=== PATIENT | male | born 1945 | race Caucasian/White ===

== ENCOUNTER 2016-12-16 10:39 | Emergency (ER) | payer OTHER ==
[~2016-12-16] VITALS: Wt 90.0 kg
[~2016-12-16 10:39] MED LIST: AMLO5TAB4 PO; ASPI-664 PO; ATOR40TA68 PO; BENA40TA41 PO; DOCU-159 PO; METO-429 PO; MULTI PO; OMEG100011 PO; TRAM-40 PO
[2016-12-16] MEDS ORDERED: morphine 4 MG/ML VIAL IV STA (11:45)
[2016-12-16] MEDS ORDERED: SOD CHLORIDE 0.9% 1,000 ML IV STA (11:45)
[2016-12-16] MEDS ORDERED: ONDANSETRON 4 MG INJ IV STA (11:45)
[2016-12-16 12:26] LABS: BASOPHILS % 0.4 % (0.0-2.0); EOSINOPHILS # 0.3 10^3/ul (0.0-0.5); EOSINOPHILS % 3.1 % (0.0-7.0); HEMATOCRIT 47.9 % (42.0-52.0); HEMOGLOBIN 16.4 g/dl (14.0-18.0); LYMPHOCYTES # 2.2 10^3/ul (0.8-2.9); LYMPHOCYTES % 22.9 % (15.0-51.0); MEAN CORPUSCULAR HEMOGLOBIN 29.8 pg (29.0-33.0); MEAN CORPUSCULAR HGB CONC 34.3 g/dl (32.0-37.0); MEAN CORPUSCULAR VOLUME 86.8 fl (82.0-101.0); MEAN PLATELET VOLUME 8.4 fl (7.4-10.4); MONOCYTE # 0.7 10^3/ul (0.3-0.9); MONOCYTES % 7.5 % (0.0-11.0); NEUTROPHIL # 6.5 10^3/ul (1.6-7.5); NEUTROPHILS % 66.1 % (39.0-77.0); PLATELET COUNT 190 10^3/UL (140-440); RED BLOOD COUNT 5.52 10^6/ul (4.70-6.10); UNCORRECTED WBC 9.8 10^3/ul (4.8-10.8); WHITE BLOOD COUNT 9.8 10^3/ul (4.8-10.8)
[2016-12-16 12:28] LABS: ADD UMIC YES; CONDITION 1; URINE BILIRUBIN (Dip) NEGATIVE (NEGATIVE); URINE BLOOD (Dip) NEGATIVE (NEGATIVE); URINE COLOR YELLOW (YELLOW); URINE GLUCOSE (Dip) NEGATIVE (NEGATIVE); URINE KETONES (Dip) NEGATIVE (NEGATIVE); URINE LEUKOCYTE ESTERASE (Dip) NEGATIVE (NEGATIVE); URINE NITRITE (Dip) NEGATIVE (NEGATIVE); URINE TOTAL PROTEIN (Dip) 1+ (NEGATIVE); URINE UROBILINOGEN (Dip) 1.0 E.U./dL (0.1-1.0)
[2016-12-16 12:38] LABS: SQUAMOUS EPITHELIAL CELL,UR OCCASIONAL; URINE RBCS NONE SEEN /HPF (0)
[2016-12-16 12:50] LABS: POTASSIUM 3.7 mmol/L (3.5-5.1)
[2016-12-16 12:51] LABS: CREATININE 0.97 mg/dl (0.61-1.24)
[2016-12-16 12:52] LABS: ALBUMIN/GLOBULIN RATIO 1.21; BILIRUBIN,INDIRECT 1.2 mg/dl (0-1.1); BILIRUBIN,TOTAL 1.2 mg/dl (0.2-1.3); CALCIUM 9.1 mg/dl (8.4-10.2); TOTAL PROTEIN 7.3 g/dl (6.1-8.1)
[2016-12-16 13:01] LABS: INR 0.97; PROTIME 12.9 Sec (12.2-14.2)
[2016-12-16 13:02] LABS: TROPONIN-I 0.013 ng/ml (0.00-0.12)
--- NOTE | 2016-12-16 14:42 | RADRPT ---
PROCEDURE: CT Abdomen and Pelvis without intravenous contrast. CLINICAL INDICATION: Right flank pain. . TECHNIQUE: CT scan of the abdomen and pelvis without intravenous contrast was performed on a multi -slice CT scanner. Coronal and sagittal reformatted images were obtained from the axial source image s. Images were reviewed on a high-resolution PACS workstation. Total DLP = 962.0 mGy-cm. CTDIvol = 15.6 mGy. One or more of the following dose reduction techniques were used: Automated exposure control. Adjustment of the mA and/or kV according to patient size. Use of iterative reconstruction technique. COMPARISON: 11/05/2014 FINDINGS: CT abdomen and pelvis: The lung bases are clear. The heart size is normal in size. The liver is normal in size and mildly fatty in density without focal mass or intrahepatic biliary dilatation. The spleen is normal in si ze and homogeneous in density. The pancreas as visualized is normal. The gallbladder is nondisten ded with a 1 cm stone near the neck.. The adrenal glands are normal. The kidneys are symmetric in size. There are multiple left renal cysts measuring up to 5.3 cm. Small hyperdense 6 mm nodule in the left renal cortex likely represents a hemorrhagic cyst. There is mild bilateral perinephric str anding. There is no obstructive uropathy or urolithiasis identified.. The stomach is partially collapsed, but is grossly unremarkable. The small bowels are unremarkable. The colon and rectum are normal. Colonic diverticulosis is present. There is no evidence of appendi citis or diverticulitis. The pelvic organs are normal. The bladder is normal. There is no abdominal or pelvic adenopathy, free fluid, free air, mass or mesenteric inflammation. The aorta is normal in caliber with calcific atherosclerosis . The osseous structures showing degen erative spondylosis of the spine. No osteolytic or osteoblastic lesions are identified. The soft ti ssues are within normal limits. Lack of IV and oral contrast limits sensitivity of exam. IMPRESSION: 1. Cholelithiasis. 2. Mild hepatic steatosis. 3. Multiple left renal cysts. Small 6 mm hemorrhagic cyst in the left kidney. No evidence of obstr uctive uropathy or urolithiasis. 4. Colonic diverticulosis without evidence of diverticulitis. RPTAT: GG .Alexei Herrera MD, MD Date Time Electronically viewed and signed by .Alexei Herrera MD, on 12/16/2016 14:41 .L/
[2016-12-16] MEDS ORDERED: IBUP400T22 PO (15:11)
[2016-12-16] MEDS ORDERED: MAG355OR14 PO (15:11)
[2016-12-16] MEDS ORDERED: ONDA4TAB8 PO (15:11)
--- NOTE | 2016-12-16 15:14 | ERD ---
ER Documentation Chief Complaint Date/Time DATE: 12/16/16 TIME: 15:12 Chief Complaint ABD PAIN FOR 5 DAYS WITH N/V. INTERMITTENT BLOOD IN STOOL S HPI 71-year-old man complains of diffuse abdominal pain and cramping with some episodes of nausea and clear nonbloody nonbilious emesis. He denies blood per rectum or melena although he does state he has this pain on a very regular basis for the last few years almost once to twice per week and is just here for reevaluation. He denies fevers or chills, no weight loss, no chest pain or shortness of breath. ROS All systems reviewed and are negative except as per history of present illness. Medications Home Meds Active Scripts Ondansetron Hcl* (Zofran*) 4 Mg Tablet, 4 MG PO Q8H Y for NAUSEA AND/OR VOMITING , #15 TAB Prov:CHRIST LAW MD 12/16/16 Mag Hydrox/Al Hydrox/Simeth (Maalox Advanced Suspension) 355 Ml Oral.susp, 2 TSP PO TID for PAIN, #24 OZ Prov:CHRIST LAW MD 12/16/16 Ibuprofen* (Motrin*) 400 Mg Tab, 400 MG PO Q8 for PAIN AND/OR INFLAMMATION, #30 TAB Prov:CHRIST LAW MD 12/16/16 Atorvastatin* (Atorvastatin*) 40 Mg Tablet, 80 MG PO HS for 30 Days, #30 TAB Prov:JOSEF RAMOS MD 06/25/16 Aspirin* (Aspirin* EC) 81 Mg Tablet.dr, 81 MG PO DAILY for 30 Days, #30 Prov:JOSEF RAMOS MD 06/25/16 Reported Medications Amlodipine Besylate* (Norvasc*) 5 Mg Tablet, 5 MG PO DAILY, TAB 11/05/14 Benazepril Hcl* (Benazepril Hcl*) 40 Mg Tablet, 40 MG PO DAILY, TAB 11/05/14 Multivitamins* (Theragran*) 1 Tab Tab, 1 TAB PO DAILY, TAB 11/05/14 Metoprolol Tartrate* (Lopressor*) 50 Mg Tab, 50 MG PO BID, TAB 11/05/14 Tramadol Hcl* (Ultram*) 50 Mg Tablet, 50 MG PO Q8, TAB 11/05/14 Docusate Sodium* (Docusate Sodium*) 100 Mg Capsule, 100 MG PO BID Y for CONSTIPATION, CAP 11/05/14 [place]-3 Fatty Acids/Fish Oil* (Fish Oil *) 1,000 Mg Capsule, 1000 MG PO DAILY, CAP 11/05/14 Allergies Allergies: Coded Allergies: No Known Drug Allergy (Verified Allergy, Mild, 03/25/11) PMhx/Soc Chronic recurrent abdominal pain, hypertension, gastritis, previous TIA and stroke, hyperlipidemia, previous alcohol abuse, coronary artery bypass graft and surgical revision History of Surgery: Yes (CABG) Anesthesia Reaction: No Hx Neurological Disorder: Yes (CVA) Hx Respiratory Disorders: No Hx Cardiac Disorders: Yes (HTN, CAD) Hx Psychiatric Problems: No Hx Miscellaneous Medical Probl: Yes (high cholesterol, CAD, ETOH abuse) Hx Alcohol Use: No Hx Substance Use: No Hx Tobacco Use: No Smoking Status: Never smoker FmHx Family History: No diabetes Physical Exam Vitals Vital Signs Date Time Temp Pulse Resp B/P Pulse Ox O2 Delivery O2 Flow Rate FiO2 12/16/16 15:33 59 18 171/82 99 Room Air 12/16/16 12:14 62 18 192/98 99 Room Air 12/16/16 10:47 98.8 72 21 200/105 98 Physical Exam GENERAL: Well-developed, well-nourished, well-hydrated, in no apparent distress , looks nontoxic in appearance HEENT: Moist mucous membranes, pink conjunctiva, no cervical spine tenderness or step-off deformities, no goiter, no jaundice or icterus, extraocular movements intact without pain. No submandibular induration, and no pharyngeal erythema NEURO: Alert and oriented 3, cranial nerves II through XII intact bilaterally, pupils equal round reactive to light, no focal deficits or facial asymmetry, sensation intact distally Strength 5/5 in upper and lower extremities bilaterally CARDIAC: Regular rate and rhythm, no murmurs rubs or gallops LUNGS: Clear bilaterally no wheezing crackles or stridor ABDOMEN: Soft nontender, no guarding, no rigidity, no rebound, no psoas sign no obturator sign. Normoactive bowel sounds SKIN: Warm and dry to touch, no abrasions, contusions, or hematomas, no lacerations, no ecchymosis, no target lesions, and without ulcers EXTREMITIES: No clubbing cyanosis or edema, calves are bilaterally symmetrical, no Homans sign, no popliteal cord sign. Distal pulses equal and bilateral PSYCH: Normal affect without agitation or irritability Result Diagram: 12/16/16 1200 12/16/16 1200 Results 24 hrs Laboratory Tests Test 12/16/16 12:00 Alanine Aminotransferase (ALT/SGPT) 55IU/L Albumin 4.0g/dl Albumin/Globulin Ratio 1.21 Alkaline Phosphatase 105IU/L Anion Gap 18 Aspartate Amino Transf (AST/SGOT) 58IU/L Basophils # 0.010^3/ul Basophils % 0.4% Blood Urea Nitrogen 10mg/dl Calcium Level 9.1mg/dl Carbon Dioxide Level 28mmol/L Chloride Level 102mmol/L Creatinine 0.97mg/dl Direct Bilirubin 0.00mg/dl Eosinophils # 0.310^3/ul Eosinophils % 3.1% Globulin 3.30g/dl Glucose Level 110mg/dl Hematocrit 47.9% Hemoglobin 16.4g/dl INR International Normalized Ratio 0.97 Indirect Bilirubin 1.2mg/dl Lipase 114U/L Lymphocytes # 2.210^3/ul Lymphocytes % 22.9% Mean Corpuscular Hemoglobin 29.8pg Mean Corpuscular Hemoglobin Concent 34.3g/dl Mean Corpuscular Volume 86.8fl Mean Platelet Volume 8.4fl Monocytes # 0.710^3/ul Monocytes % 7.5% Neutrophils # 6.510^3/ul Neutrophils % 66.1% Nucleated Red Blood Cells # 0.010^3/ul Nucleated Red Blood Cells % 0.0/100WBC Platelet Count 46219^3/UL Potassium Level 3.7mmol/L Prothrombin Time 12.9Sec Prothrombin Time Ratio 1.0 Red Blood Count 5.5210^6/ul Red Cell Distribution Width 14.0% Sodium Level 144mmol/L Total Bilirubin 1.2mg/dl Total Protein 7.3g/dl Troponin I 0.013ng/ml Urine Bilirubin NEGATIVE Urine Clarity CLEAR Urine Color YELLOW Urine Glucose NEGATIVE% Urine Hemoglobin NEGATIVE Urine Ketones NEGATIVE Urine Leukocyte Esterase NEGATIVE Urine Microscopic RBC NONE SEEN/HPF Urine Microscopic WBC 0-2/HPF Urine Nitrite NEGATIVE Urine Specific [place] 1.020 Urine Squamous Epithelial Cells OCCASIONAL Urine Total Protein 1+ Urine Urobilinogen 1.0 E.U./dL Urine pH 6.0 White Blood Count 9.810^3/ul Current Medications Medications (Trade) Dose Ordered Sig/Esha Route PRN Reason Start Time Stop Time Status Last Admin Dose Admin Sodium Chloride (NS) 1,000 ml @ 1,000 mls/hr Q1H STAT IV 12/16/16 11:45 12/16/16 12:44 DC 12/16/16 12:11 Morphine Sulfate (morphine) 4 mg ONCE STAT IV 12/16/16 11:45 12/16/16 11:47 DC 12/16/16 12:10 Ondansetron HCl (Zofran Inj) 4 mg ONCE STAT IV 12/16/16 11:45 12/16/16 11:47 DC 12/16/16 12:10 Procedures/MDM IV line was established patient was placed on bus driver/monitor rhythm strip revealed a sinus rhythm at about 70 bpm with upright P and T waves. Patient was afebrile. EKG performed, read by me: 69 bpm, normal sinus rhythm, normal axis, no acute ST segment changes, narrow QRS complex, with good R-wave progression in precordial leads. I administered 1 L normal saline intravenously, morphine 4 mg IV, Zofran 4 mg IV with resolution of pain. CBC and electrolytes were unremarkable, liver function tests revealed mild hyperbilirubinemia, troponin was negative. Urine analysis was negative for infection. CT scan of the abdomen and pelvis was performed revealing cholelithiasis, no other acute inflammatory or infectious pathology was noted. Please refer to radiologist dictation for full report Abdominal examination was repeated by me after medications were administered and just prior to discharge. His belly remains soft his vital signs are normal and is able to tolerate p.o. He states he feels much better and agreed to follow-up with his PMD for continued outpatient management and reimaging if indicated. Differential diagnoses considered, included but not limited to acute coronary syndrome, pulmonary embolism, aortic dissection, abdominal aortic aneurysm, sepsis, stroke, meningitis, encephalitis, pneumonia, appendicitis, cholecystitis , bowel obstruction, pyelonephritis, nephrolithiasis, cystitis, as well as metabolic, hematologic, and electrolyte abnormalities. As well as abscess, cellulitis, fractures, and dislocations. Patient feels much better at this time, and vital signs are normal, symptoms have improved. I did give strict instructions to return to the ED if symptoms continue or worsen, patient will otherwise follow-up with primary care physician. Patient understood instructions and agreed to plan. Departure Diagnosis: Primary Impression: Cholelithiases Cholelithiasis location: gallbladder Cholecystitis presence: without cholecystitis Biliary obstruction: without biliary obstruction Qualified Code : K80.20 - Calculus of gallbladder without cholecystitis without obstruction Additional Impressions: Abdominal pain Abdominal location: generalized Qualified Code: R10.84 - Generalized abdominal pain Diarrhea Diarrhea type: unspecified type Qualified Code: R19.7 - Diarrhea, unspecified type Condition: Good Patient Instructions: Abdominal Pain, Gallstones CHRIST LAW MD Dec 16, 2016 15:14
[2016-12-16 15:33] VITALS: BP 171/82; PULSE 59; RESP 18
== END 2016-12-16 15:38 | disposition home or self-care (01) ==
LOC: E/R 10:39
DX: K80.20 Calculus of gallbladder without cholecystitis without obstruction (principal); R40.2252 Coma scale, best verbal response, oriented, at arrival to emergency department; R19.7 Diarrhea, unspecified; R11.2 Nausea with vomiting, unspecified; I10 Essential (primary) hypertension; I25.10 Atherosclerotic heart disease of native coronary artery without angina pectoris; R40.2362 Coma scale, best motor response, obeys commands, at arrival to emergency department; R40.2142 Coma scale, eyes open, spontaneous, at arrival to emergency department; Z95.1 Presence of aortocoronary bypass graft; Z79.82 Long term (current) use of aspirin
CPT/HCPCS: 36415; 74176; 80053; 81001; 83690; 84484; 85025; 85610; 93005; 96374; 96375; 99285; J2270; J2405; J7030; 81003

== ENCOUNTER 2017-02-06 14:42 | Emergency (ER) | payer OTHER ==
[~2017-02-06] VITALS: Wt 72.0 kg
[~2017-02-06 14:42] MED LIST changes: +IBUP400T22 PO; +MAG355OR14 PO; +ONDA4TAB8 PO
== END 2017-02-06 19:30 | disposition left against medical advice (07) ==
LOC: E/R 14:42
DX: Z53.21 Procedure and treatment not carried out due to patient leaving prior to being seen by health care provider (principal)

== ENCOUNTER 2017-07-28 10:19 | Observation (INO) | payer OTHER ==
[~2017-07-28] VITALS: Ht 162.6 cm; Wt 76.0 kg
[2017-07-28] MEDS ORDERED: ASPIRIN 325 MG TAB PO STA (10:45)
[2017-07-28] MEDS ORDERED: NITROGLYCERIN 2% 1 GM OINT PKT TD STA (10:45)
[2017-07-28 11:02] LABS: HEMATOCRIT 41.4 % (42.0-52.0); HEMOGLOBIN 14.5 g/dl (14.0-18.0); LYMPHOCYTES % 30.5 % (15.0-51.0); MEAN CORPUSCULAR HEMOGLOBIN 29.8 pg (29.0-33.0); MEAN CORPUSCULAR VOLUME 85.2 fl (82.0-101.0); MEAN PLATELET VOLUME 9.7 fl (7.4-10.4); NEUTROPHILS % 57.7 % (39.0-77.0); PLATELET COUNT 167 10^3/UL (140-415); RED BLOOD COUNT 4.86 10^6/ul (4.70-6.10); RED CELL DISTRIBUTION WIDTH 13.2 % (11.5-14.5); WHITE BLOOD COUNT 7.5 10^3/ul (4.8-10.8)
[2017-07-28 11:03] LABS: BASOPHIL # 0.1 10^3/ul (0.0-0.1); BASOPHILS % 0.7 % (0.0-2.0); EOSINOPHILS # 0.2 10^3/ul (0.0-0.5); EOSINOPHILS % 2.3 % (0.0-7.0); LYMPHOCYTES # 2.3 10^3/ul (0.8-2.9); MONOCYTE # 0.6 10^3/ul (0.3-0.9); MONOCYTES % 8.5 % (0.0-11.0); NEUTROPHIL # 4.3 10^3/ul (1.6-7.5)
--- NOTE | 2017-07-28 11:17 | RADRPT ---
PROCEDURE: XR Chest 1 view. CLINICAL INDICATION: Chest pain TECHNIQUE: AP views of the chest were obtained. COMPARISON: CR CHEST 06/24/2016 FINDINGS: The heart is large. Calcified atherosclerosis is noted in the aorta. Replacement heart valve is not ed. Median sternotomy wires overlie the heart. No consolidations are identified. No pneumothorax is seen. Osseous structures are intact. IMPRESSION: Cardiomegaly with calcified atherosclerosis in the aorta. Clear lungs. RPTAT: AA .Yoseph Garibay MD, Date Time Electronically viewed and signed by .Yoseph Garibay MD, on 07/28/2017 11:17 .P/
[2017-07-28 11:25] LABS: ALANINE AMINOTRANSFERASE 41 IU/L (13-69); ALBUMIN 3.7 g/dl (3.3-4.9); ALBUMIN/GLOBULIN RATIO 1.08; ALKALINE PHOSPHATASE 79 IU/L (42-121); ANION GAP 10 (8-16); ASPARTATE AMINO TRANSFERASE 30 IU/L (15-46); BLOOD UREA NITROGEN 15 mg/dl (7-20); CALCIUM 9.2 mg/dl (8.4-10.2); CARBON DIOXIDE 28 mmol/L (21-31); CHLORIDE 106 mmol/L (97-110); CREATININE 1.01 mg/dl (0.61-1.24); GLUCOSE 116 mg/dl (70-220); POTASSIUM 3.9 mmol/L (3.5-5.1); SODIUM 140 mmol/L (135-144); TOTAL PROTEIN 7.1 g/dl (6.1-8.1)
[2017-07-28 11:29] LABS: INR 0.92; PROTIME 12.4 Sec (12.2-14.2)
[2017-07-28 11:30] LABS: PARTIAL THROMBOPLASTIN TIME 33.8 Sec (25.0-35.0)
[2017-07-28 11:40] LABS: TROPONIN-I < 0.012 ng/ml (0.00-0.12)
--- NOTE | 2017-07-28 12:07 | ERA ---
ER Documentation Chief Complaint Date/Time DATE: 07/28/17 TIME: 12:00 Chief Complaint CP AND PALPATATIONS X 3 DAYS HPI This is a 72-year-old male here for chest pain. He states he has had substernal chest pressure off and on for 3 days as well as shortness of breath and palpitations.Diaphoresis no syncope. The patient has a history of hypertension and high cholesterol. Currently has no chest pain. He called EMS today because his pain was severe and was not resolving. He did not receive any nitroglycerin sublingually only aspirin. Because his pain had gone away time they got there. Currently has no chest pain at all. Denies any prior cardiac history ROS All systems reviewed and are negative except as per history of present illness. Medications Home Meds Active Scripts Ondansetron Hcl* (Zofran*) 4 Mg Tablet, 4 MG PO Q8H Y for NAUSEA AND/OR VOMITING , #15 TAB Prov:CHRIST LAW MD 12/16/16 Mag Hydrox/Al Hydrox/Simeth (Maalox Advanced Suspension) 355 Ml Oral.susp, 2 TSP PO TID for PAIN, #24 OZ Prov:CHRIST LAW MD 12/16/16 Ibuprofen* (Motrin*) 400 Mg Tab, 400 MG PO Q8 for PAIN AND/OR INFLAMMATION, #30 TAB Prov:CHRIST LAW MD 12/16/16 Atorvastatin* (Atorvastatin*) 40 Mg Tablet, 80 MG PO HS for 30 Days, #30 TAB Prov:JOSEF RAMOS MD 06/25/16 Aspirin* (Aspirin* EC) 81 Mg Tablet.dr, 81 MG PO DAILY for 30 Days, #30 Prov:JOSEF RAMOS MD 06/25/16 Reported Medications Amlodipine Besylate* (Norvasc*) 5 Mg Tablet, 5 MG PO DAILY, TAB 11/05/14 Benazepril Hcl* (Benazepril Hcl*) 40 Mg Tablet, 40 MG PO DAILY, TAB 11/05/14 Multivitamins* (Theragran*) 1 Tab Tab, 1 TAB PO DAILY, TAB 11/05/14 Metoprolol Tartrate* (Lopressor*) 50 Mg Tab, 50 MG PO BID, TAB 11/05/14 Tramadol Hcl* (Ultram*) 50 Mg Tablet, 50 MG PO Q8, TAB 11/05/14 Docusate Sodium* (Docusate Sodium*) 100 Mg Capsule, 100 MG PO BID Y for CONSTIPATION, CAP 11/05/14 [place]-3 Fatty Acids/Fish Oil* (Fish Oil *) 1,000 Mg Capsule, 1000 MG PO DAILY, CAP 11/05/14 Allergies Allergies: Coded Allergies: No Known Drug Allergy (Verified Allergy, Mild, 03/25/11) PMhx/Soc History of Surgery: Yes (CABG) Anesthesia Reaction: No Hx Neurological Disorder: Yes (CVA) Hx Respiratory Disorders: No Hx Cardiac Disorders: Yes (HTN, CAD) Hx Psychiatric Problems: No Hx Miscellaneous Medical Probl: Yes (high cholesterol, CAD, ETOH abuse) Hx Alcohol Use: No Hx Substance Use: No Hx Tobacco Use: No Smoking Status: Never smoker FmHx Family History: No coronary disease Physical Exam Vitals Vital Signs Date Time Temp Pulse Resp B/P Pulse Ox O2 Delivery O2 Flow Rate FiO2 07/28/17 11:11 72 18 127/55 96 07/28/17 10:27 98.2 63 18 132/83 96 Physical Exam C Const: [Well-developed, well-nourished] Head: [Atraumatic, normocephalic] Eyes: [Normal Conjunctiva, PERRLA, EOMI, normal sclera, no nystagmus] ENT: [Normal External Ears, Nose and Mouth, moist mucus membranes.] Neck: [Full range of motion. No meningismus, no lymphadenopathy.] Resp: [Clear to auscultation bilaterally, no wheezing, rhonchi, rales] Cardio: [Regular rate and rhythm, no murmurs, S1 S2 present] Abd: [Soft, non tender x 4, non distended. Normal bowel sounds, no guarding or rebound, no pulsitile abdominal masses or bruits] Skin: [No petechiae or rashes, no ecchymosis , no maculopapular rash] Back: [No midline or flank tenderness] Ext: [No cyanosis, or edema, FROM x 4, normal inspection, neurovascularly intact x 4] Neur: [Awake and alert, STR 5/5 x 4, sensation intact x 4, no focal findings, cerebellum intact] Psych: [Normal Mood and Affect] Result Diagram: 07/28/17 1050 07/28/17 1050 Results 24 hrs Laboratory Tests Test 07/28/17 10:50 White Blood Count 7.510^3/ul Red Blood Count 4.8610^6/ul Hemoglobin 14.5g/dl Hematocrit 41.4% Mean Corpuscular Volume 85.2fl Mean Corpuscular Hemoglobin 29.8pg Mean Corpuscular Hemoglobin Concent 35.0g/dl Red Cell Distribution Width 13.2% Platelet Count 99857^3/UL Mean Platelet Volume 9.7fl Neutrophils % 57.7% Lymphocytes % 30.5% Monocytes % 8.5% Eosinophils % 2.3% Basophils % 0.7% Nucleated Red Blood Cells % 0.0/100WBC Neutrophils # 4.310^3/ul Lymphocytes # 2.310^3/ul Monocytes # 0.610^3/ul Eosinophils # 0.210^3/ul Basophils # 0.110^3/ul Nucleated Red Blood Cells # 0.010^3/ul Prothrombin Time 12.4Sec Prothrombin Time Ratio 1.0 INR International Normalized Ratio 0.92 Activated Partial Thromboplast Time 33.8Sec Sodium Level 140mmol/L Potassium Level 3.9mmol/L Chloride Level 106mmol/L Carbon Dioxide Level 28mmol/L Anion Gap 10 Blood Urea Nitrogen 15mg/dl Creatinine 1.01mg/dl Glucose Level 116mg/dl Calcium Level 9.2mg/dl Total Bilirubin 1.0mg/dl Direct Bilirubin 0.00mg/dl Indirect Bilirubin 1.0mg/dl Aspartate Amino Transf (AST/SGOT) 30IU/L Alanine Aminotransferase (ALT/SGPT) 41IU/L Alkaline Phosphatase 79IU/L Troponin I < 0.012ng/ml Total Protein 7.1g/dl Albumin 3.7g/dl Globulin 3.40g/dl Albumin/Globulin Ratio 1.08 Current Medications Medications (Trade) Dose Ordered Sig/Esha Route PRN Reason Start Time Stop Time Status Last Admin Dose Admin Aspirin (Aspirin) 325 mg ONCE STAT PO 07/28/17 10:45 07/28/17 10:47 DC 07/28/17 11:02 Nitroglycerin (Nitroglycerin 2% Oint) 1 inch ONCE STAT TD 07/28/17 10:45 07/28/17 10:47 DC 07/28/17 11:02 Procedures/MDM PROCEDURE: XR Chest 1 view. CLINICAL INDICATION: Chest pain TECHNIQUE: AP views of the chest were obtained. COMPARISON: CR CHEST 06/24/2016 FINDINGS: The heart is large. Calcified atherosclerosis is noted in the aorta. Replacement heart valve is noted. Median sternotomy wires overlie the heart. No consolidations are identified. No pneumothorax is seen. Osseous structures are intact. IMPRESSION: Cardiomegaly with calcified atherosclerosis in the aorta. Clear lungs. RPTAT: AA .Yoseph Garibay MD, MD Date Time Electronically viewed and signed by .Yoseph Garibay MD, on 07/28/2017 11:17 .P/ CC: YVETTE LOMAS DO EKG: Rate/Rhythm: Normal Sinus Rhythm,NL intervals QRS, ST, QT: NORMAL MI, QRS, QT] Impression: NORMAL EKG Patient's symptoms are concerning for cardiac cause will require inpatient workup and continuous monitoring. Further w/u for ischemia, arrhythmia, PE or dissection will be deferred to the inpatient team. Accepting Care Team: Current data and ongoing care discussed. Time: Time of admission Primary Provider: JEN Consulting: JEN Outstanding Data: none Departure Diagnosis: Primary Impression: Chest pain Qualified Code: R07.9 - Chest pain, unspecified type Condition: Stable YVETTE LOMAS DO Jul 28, 2017 12:07
[2017-07-28] MEDS ORDERED: ACETAMINOPHEN 325 MG TAB PO PRN ×2 (13:30→16:30)
[2017-07-28] MEDS ORDERED: ONDANSETRON 4 MG INJ IV PRN ×2 (13:30→16:30)
[2017-07-28 15:13] VITALS: PULSE 57
[2017-07-28 15:15] VITALS: BP 142/75; PULSE 63; RESP 16
[2017-07-28 16:00] VITALS: PULSE 55
[2017-07-28 16:22] VITALS: Ht 162.6 cm; Wt 76.0 kg
[2017-07-28] MEDS ORDERED: ONDANSETRON 4 MG TAB PO PRN (16:30)
[2017-07-28] MEDS ORDERED: BISACODYL 10 MG SUPP PR PRN (16:30)
[2017-07-28] MEDS ORDERED: DOCUSATE SODIUM 100 MG CAP PO PRN ×2 (16:30)
[2017-07-28] MEDS ORDERED: morphine 2 MG INJ IV PRN (16:30)
[2017-07-28] MEDS ORDERED: HYDROCODONE/APAP (5/325) TAB PO PRN ×2 (16:30)
[2017-07-28] MEDS ORDERED: NACL 0.9% 3 ML SYG IV SCH (16:30)
[2017-07-28] MEDS ORDERED: MAGNESIUM HYDROXIDE 30ML CUP PO PRN (16:30)
[2017-07-28] MEDS ORDERED: NITROGLYCERIN (SL) 0.4 MG TAB SL PRN (16:30)
[2017-07-28] MEDS ORDERED: ACETAMINOPHEN 650 MG SUPP PR PRN (16:30)
[2017-07-28 17:16] LABS: CREATINE KINASE 58 IU/L (23-200)
--- NOTE | 2017-07-28 17:18 | HP ---
Date/Time of Note Date/Time of Note DATE: 07/28/17 TIME: 17:14 Assessment/Plan VTE Prophylaxis VTE Prophylaxis Intervention: SCD's Lines/Catheters IV [facility] Saline Lock Assessment/Plan Chief Complaint/Hosp Course Impression and plan 1. Chest pain. Rule out ACS. Follow-up echocardiogram. Check serial troponins. will get training personnel supervisor consultation considering patient's heart history. Monitor on telemetry. 2. History of CAD. Will resume patient's antiplatelet therapy as well as statin medication. [employer] consultation pending. 3. Essential hypertension. Will resume patient's antihypertensive and adjust as needed 4. History of dyslipidemia. continue on statin Admission process time greater than 40 minutes Discussed plan of care with Dr. Jarquin Problems: HPI/ROS Admit Date/Time Admit Date/Time Jul 28, 2017 at 13:18 Hx of Present Illness This 72-year-old male with history of hypertension, coronary artery disease with CABG 2, dyspnea, who came to clinic with return hospital due to reports of 3 days of intermittent chest pain. Patient does report the chest pain is on the left side of his chest pressure-like in nature and nonradiating 10 out of 10 when he does have pain. He reports no specific exacerbating factors. Denies any shortness of breath or chest pain on exertion. Reports having some palpitations. He subsequently went to [facility] for further evaluation. Initial troponin was negative. CBC and BMP otherwise unremarkable. He remained afebrile. Denies any sick contacts. He does report compliance with his home medications. We will evaluate him for the aformentiond issues. ROS 12 point review of systems obtained entirely negative except as mentioned in the history present illness PMH/Family/Social Past Medical History Medical/surgical history 1. Coronary artery disease 2. Reported open heart surgery at [facility] 20 years ago 3. Reported open heart surgery again 3 years ago at [facility] 4. Hypertension. 5. Dyslipidemia Past Surgical History Past Surgical Hx: coronary bypass surgery Social History Alcohol Use: none Smoking Status: Former smoker Drug Use: none Exam/Review of Systems Vital Signs Vitals Vital Signs Date Time Temp Pulse Resp B/P Pulse Ox O2 Delivery O2 Flow Rate FiO2 07/28/17 16:00 55 07/28/17 14:52 18 133/78 96 07/28/17 10:27 98.2 Exam Constitutional: alert, oriented Psych: no complaints Respiratory: clear to auscultation Cardiovascular: other (Bradycardic to regular rate) Gastrointestinal: soft Musculoskeletal: nl extremities to inspection Neurological: FAITH DOCTOR II-XII intact, nl mental status, nl speech Labs Result Diagram: 07/28/17 1050 07/28/17 1050 Medications Medications Current Medications Amlodipine Besylate (Norvasc) 5 mg DAILY PO ; Start 07/29/17 at 09:00 Atorvastatin Calcium (Lipitor) 80 mg HS PO ; Start 07/28/17 at 21:00 Benazepril HCl (Lotensin) 40 mg DAILY PO ; Start 07/29/17 at 09:00 Docusate Sodium (Colace) 100 mg BID PRN PO CONSTIPATION; Start 07/28/17 at 16: 30 Al Hydrox/Mg Hydrox/Simethicone (Mag-Al Plus) 10 ml TID PO ; Start 07/28/17 at 21:00 Metoprolol Tartrate (Lopressor) 50 mg BID PO ; Start 07/28/17 at 21:00 Multivitamins Therapeutic (Theragran) 1 tab DAILY PO ; Start 07/29/17 at 09:00 Fish Oil (Fish Oil) 1,000 mg DAILY PO ; Start 07/29/17 at 09:00 Ondansetron HCl (Zofran Tab) 4 mg Q8H PRN PO NAUSEA AND/OR VOMITING; Start at 16:30 Ondansetron HCl (Zofran Inj) 4 mg Q6H PRN IV NAUSEA AND/OR VOMITING; Start at 16:30 Acetaminophen (Tylenol Tab) 650 mg Q6H PRN PO PAIN LEVEL 1-3 OR FEVER; Start at 16:30 Acetaminophen (Tylenol Supp) 650 mg Q6H PRN [place] PAIN LEVEL 1-3 OR FEVER; Start 07/28/17 at 16:30 Acetaminophen/ Hydrocodone Bitart ([place] (5/325)) 1 tab Q6H PRN PO MODERATE PAIN LEVEL 4-6; Start 07/28/17 at 16:30 Acetaminophen/ Hydrocodone Bitart ([place] (5/325)) 2 tab Q6H PRN PO SEVERE PAIN LEVEL 7-10; Start 07/28/17 at 16:30 Morphine Sulfate (morphine) 2 mg Q4H PRN IV SEVERE PAIN LEVEL 7-10; Start 07/28 at 16:30 Magnesium Hydroxide (Milk Of Mag) 30 ml DAILY PRN PO CONSTIPATION; Start at 16:30 Bisacodyl (Dulcolax Supp) 10 mg DAILY PRN [place] CONSTIPATION; Start 07/28/17 at 16 :30 Pantoprazole (Protonix Iv) 40 mg DAILY@06 IV ; Start 07/29/17 at 06:00 Aspirin (Aspirin) 81 mg DAILY PO ; Start 07/30/17 at 09:00 Nitroglycerin (Nitroglycerin (Sl Tab) 0.4 Mg) 1 tab Q5M PRN SL CHEST PAIN; Start 07/28/17 at 16:30 SHAYLA AMADOR Jul 28, 2017 17:18 SHAYLA AMADOR Jul 28, 2017 17:18
[2017-07-28 17:34] LABS: CK-MB 0.69 ng/ml (0.0-2.4); TROPONIN-I < 0.012 ng/ml (0.00-0.12)
[2017-07-28 20:00] VITALS: BP 143/68; RESP 18
[2017-07-28 20:08] VITALS: PULSE 54
[2017-07-28] MEDS: METOPROLOL 50 MG TAB PO SCH (20:29)
[2017-07-28] MEDS: AL HYDROX/MG HYDROX/SIMETH 30 ML CUP PO SCH (20:31)
[2017-07-28] MEDS: ATORVASTATIN 40 MG TAB PO SCH (20:33)
[2017-07-28] MEDS ORDERED: ZOLPIDEM 5 MG TAB PO PRN (21:00)
[2017-07-28 22:49] LABS: CREATINE KINASE 51 IU/L (23-200)
[2017-07-28 23:05] LABS: CK-MB 0.61 ng/ml (0.0-2.4); TROPONIN-I < 0.012 ng/ml (0.00-0.12)
[2017-07-29] VITALS (13 sets, daily range): BP systolic 121–161; BP diastolic 59–91; PULSE 50–57; RESP 17–19
[2017-07-29] MEDS ORDERED: PANTOPRAZOLE 40 MG INJ IV SCH (06:00)
[2017-07-29 06:06] LABS: BASOPHIL # 0.1 10^3/ul (0.0-0.1); BASOPHILS % 0.8 % (0.0-2.0); EOSINOPHILS # 0.3 10^3/ul (0.0-0.5); EOSINOPHILS % 3.4 % (0.0-7.0); HEMATOCRIT 43.2 % (42.0-52.0); HEMOGLOBIN 14.5 g/dl (14.0-18.0); LYMPHOCYTES # 2.7 10^3/ul (0.8-2.9); LYMPHOCYTES % 30.6 % (15.0-51.0); MEAN CORPUSCULAR HEMOGLOBIN 28.8 pg (29.0-33.0); MEAN CORPUSCULAR HGB CONC 33.6 g/dl (32.0-37.0); MEAN CORPUSCULAR VOLUME 85.7 fl (82.0-101.0); MONOCYTE # 0.7 10^3/ul (0.3-0.9); MONOCYTES % 7.4 % (0.0-11.0); NEUTROPHIL # 5.1 10^3/ul (1.6-7.5); NEUTROPHILS % 57.6 % (39.0-77.0); PLATELET COUNT 170 10^3/UL (140-415); RED BLOOD COUNT 5.04 10^6/ul (4.70-6.10); RED CELL DISTRIBUTION WIDTH 13.7 % (11.5-14.5); WHITE BLOOD COUNT 8.9 10^3/ul (4.8-10.8)
[2017-07-29 07:03] LABS: ALBUMIN 3.7 g/dl (3.3-4.9); ALBUMIN/GLOBULIN RATIO 1.23; BILIRUBIN,INDIRECT 1.5 mg/dl (0-1.1); BILIRUBIN,TOTAL 1.5 mg/dl (0.2-1.3); CALCIUM 9.3 mg/dl (8.4-10.2); CHOL/HDL RATIO 3.6 RATIO; CREATININE 0.92 mg/dl (0.61-1.24); MAGNESIUM 1.8 mg/dl (1.7-2.5); PHOSPHORUS 3.4 mg/dl (2.5-4.9); POTASSIUM 4.4 mmol/L (3.5-5.1); TOTAL PROTEIN 6.7 g/dl (6.1-8.1)
[2017-07-29 07:27] LABS: T3 UPTAKE 31.6 % (23.5-40.5)
[2017-07-29 07:40] LABS: THYROID STIMULATING HORMONE 3.61 MIU/L (0.465-4.680)
[2017-07-29] MEDS ORDERED: ASPIRIN (EC) 81 MG TAB PO SCH (09:00)
[2017-07-29] MEDS: AL HYDROX/MG HYDROX/SIMETH 30 ML CUP PO SCH ×3 (10:03→20:36)
[2017-07-29] MEDS: FISH OIL 1,000 MG CAP PO SCH (10:05)
[2017-07-29] MEDS: AMLODIPINE 5 MG TAB PO SCH (10:06)
[2017-07-29] MEDS: BENAZEPRIL 40 MG TAB PO SCH (10:06)
[2017-07-29] MEDS: MULTIVITAMINS THERAPEUTIC TAB PO SCH (10:06)
[2017-07-29] MEDS: METOPROLOL 50 MG TAB PO SCH ×2 (10:08→20:33)
--- NOTE | 2017-07-29 15:17 | PDOCDIS ---
Discharge Instructions DIAGNOSIS Discharge Diagnosis 1. Chest pain 2. History of CAD. 3. Essential hypertension. 4. History of dyslipidemia. CONDITION Patient Condition: Stable HOME CARE INSTRUCTIONS: Diet Instructions: Low Fat /Cholesterol FOLLOW UP/APPOINTMENTS Follow-up Plan 1. Follow up with Dr. Clement in one week SHAYLA AMADOR Jul 29, 2017 15:17
--- NOTE | 2017-07-29 15:24 | PN ---
Date/Time of Note Date/Time of Note DATE: 07/29/17 TIME: 15:21 Assessment/Plan VTE Prophylaxis VTE Prophylaxis Intervention: SCD's Lines/Catheters [facility] Peripheral IV Urinary Cath still in place: No Assessment/Plan Chief Complaint/Hosp Course Impression and plan 1. Chest pain. serial troponins negative. follow up echo. fisheries technician consultation to follow. Monitor on telemetry. 2. History of CAD. Will resume patient's antiplatelet therapy as well as statin medication. fisheries technician to follow 3. Essential hypertension. Will resume patient's antihypertensive and adjust as needed 4. History of dyslipidemia. cont statin Disposition and plan: Follow-up with echocardiogram. Assistant Manager Bilingual consultation pending. Replete lites as needed. Discussed plan of care with Dr. Jarquin Problems: Subjective 24 Hr Interval Summary Free Text/Dictation No further reports of chest pain this time. Appears comfortable at present. no s/s of distress Exam/Review of Systems Vital Signs Vitals Vital Signs Date Time Temp Pulse Resp B/P Pulse Ox O2 Delivery O2 Flow Rate FiO2 07/29/17 15:19 98.2 53 18 161/79 94 07/28/17 15:15 Room Air Intake and Output 07/28/17 07/28/17 07/29/17 15:00 23:00 07:00 Intake Total 500 ml 300 ml Balance 500 ml 300 ml Exam Constitutional: alert, oriented Psych: no complaints Respiratory: clear to auscultation Cardiovascular: other (Bradycardic to regular rate) Gastrointestinal: soft Musculoskeletal: nl extremities to inspection Neurological: CELLAR PACKER II-XII intact, nl mental status, nl speech Results Result Diagram: 07/29/17 0546 07/29/17 1045 Results 24 hrs Laboratory Tests Test 07/28/17 16:21 07/28/17 22:08 07/29/17 05:46 07/29/17 10:45 Creatine Kinase 58 51 Creatine Kinase Index 1.2 1.2 Creatinine Kinase MB (Mass) 0.69 0.61 Troponin I < 0.012 < 0.012 White Blood Count 8.9 Red Blood Count 5.04 Hemoglobin 14.5 Hematocrit 43.2 Mean Corpuscular Volume 85.7 Mean Corpuscular Hemoglobin 28.8 L Mean Corpuscular Hemoglobin Concent 33.6 Red Cell Distribution Width 13.7 Platelet Count 170 Mean Platelet Volume 10.0 Neutrophils % 57.6 Lymphocytes % 30.6 Monocytes % 7.4 Eosinophils % 3.4 Basophils % 0.8 Nucleated Red Blood Cells % 0.0 Neutrophils # 5.1 Lymphocytes # 2.7 Monocytes # 0.7 Eosinophils # 0.3 Basophils # 0.1 Nucleated Red Blood Cells # 0.0 Hemoglobin A1c 5.9 Sodium Level 137 Potassium Level 4.4 Chloride Level 104 Carbon Dioxide Level 28 Anion Gap 9 Blood Urea Nitrogen 15 Creatinine 0.92 Glucose Level 92 Calcium Level 9.3 Phosphorus Level 3.4 Magnesium Level 1.8 Total Bilirubin 1.5 H Direct Bilirubin 0.00 Indirect Bilirubin 1.5 H Aspartate Amino Transf (AST/SGOT) 27 Alanine Aminotransferase (ALT/SGPT) 42 Alkaline Phosphatase 74 Total Protein 6.7 Albumin 3.7 Globulin 3.00 Albumin/Globulin Ratio 1.23 Triglycerides Level 151 H Cholesterol Level 129 LDL Cholesterol, Calculated 64 HDL Cholesterol 35 Cholesterol/HDL Ratio 3.6 Thyroid Stimulating Hormone (TSH) 3.610 Free Thyroxine Index 2.28 Thyroxine (T4) 7.2 Triiodothyronine (T3) Uptake 31.6 Medications Medications Current Medications Amlodipine Besylate (Norvasc) 5 mg DAILY PO Last administered on 07/29/17 10: 06; Admin Dose 5 MG; Start 07/29/17 at 09:00 Atorvastatin Calcium (Lipitor) 80 mg HS PO Last administered on 07/28/17 20:33 ; Admin Dose 80 MG; Start 07/28/17 at 21:00 Benazepril HCl (Lotensin) 40 mg DAILY PO Last administered on 07/29/17 10:06; Admin Dose 40 MG; Start 07/29/17 at 09:00 Docusate Sodium (Colace) 100 mg BID PRN PO CONSTIPATION; Start 07/28/17 at 16: 30 Al Hydrox/Mg Hydrox/Simethicone (Mag-Al Plus) 10 ml TID PO Last administered on 07/29/17 12:43; Admin Dose 10 ML; Start 07/28/17 at 21:00 Metoprolol Tartrate (Lopressor) 50 mg BID PO Last administered on 07/29/17 10: 08; Admin Dose 50 MG; Start 07/28/17 at 21:00 Multivitamins Therapeutic (Theragran) 1 tab DAILY PO Last administered on 10:06; Admin Dose 1 TAB; Start 07/29/17 at 09:00 Fish Oil (Fish Oil) 1,000 mg DAILY PO Last administered on 07/29/17 10:05; Admin Dose 1,000 MG; Start 07/29/17 at 09:00 Ondansetron HCl (Zofran Tab) 4 mg Q8H PRN PO NAUSEA AND/OR VOMITING; Start at 16:30 Ondansetron HCl (Zofran Inj) 4 mg Q6H PRN IV NAUSEA AND/OR VOMITING; Start at 16:30 Acetaminophen (Tylenol Tab) 650 mg Q6H PRN PO PAIN LEVEL 1-3 OR FEVER; Start at 16:30 Acetaminophen (Tylenol Supp) 650 mg Q6H PRN [place] PAIN LEVEL 1-3 OR FEVER; Start 07/28/17 at 16:30 Acetaminophen/ Hydrocodone Bitart ([place] (5/325)) 1 tab Q6H PRN PO MODERATE PAIN LEVEL 4-6; Start 07/28/17 at 16:30 Acetaminophen/ Hydrocodone Bitart ([place] (5/325)) 2 tab Q6H PRN PO SEVERE PAIN LEVEL 7-10; Start 07/28/17 at 16:30 Morphine Sulfate (morphine) 2 mg Q4H PRN IV SEVERE PAIN LEVEL 7-10; Start 07/28 at 16:30 Magnesium Hydroxide (Milk Of Mag) 30 ml DAILY PRN PO CONSTIPATION; Start at 16:30 Bisacodyl (Dulcolax Supp) 10 mg DAILY PRN [place] CONSTIPATION; Start 07/28/17 at 16 :30 Pantoprazole (Protonix Iv) 40 mg DAILY@06 IV Last administered on 07/29/17 05: 56; Admin Dose 40 MG; Start 07/29/17 at 06:00 Aspirin (Aspirin) 81 mg DAILY PO ; Start 07/30/17 at 09:00 Nitroglycerin (Nitroglycerin (Sl Tab) 0.4 Mg) 1 tab Q5M PRN SL CHEST PAIN; Start 07/28/17 at 16:30 SHAYLA AMADOR Jul 29, 2017 15:24 SHAYLA AMADOR Jul 29, 2017 15:24
[2017-07-29] MEDS ORDERED: MAGNESIUM SULFATE 3 GM in SOD CHLORIDE 0.9% 100 ML IVPB ONE (15:30)
--- NOTE | 2017-07-29 15:49 | CONS ---
Date/Time of Note Date/Time of Note DATE: 07/29/17 TIME: 15:28 Assessment/Plan Assessment/Plan Additional Assessment/Plan Palpitations and chest pain CAD with history of CABG Aortic stenosis status post aortic valve replacement Hypertension PVCs -Patient with symptoms of palpitations for 1 week in the morning time which resolves throughout the day. Chest discomfort was present yesterday. He denies exertional chest pain or shortness of breath. Serial cardiac enzymes remain negative, ECG with no significant ischemic abnormalities. Telemetry reviewed with episodes of PVCs and bigeminy. Would supplement magnesium to maintain above 2.0, maintain potassium above 4.0, check echocardiogram, continue beta-blockers heart rate and blood pressure permits. Continue aspirin and statin therapy if no contraindication. Consultation Date/Type/Reason Admit Date/Time Jul 28, 2017 at 13:18 Type of Consultation: cv Reason for Consultation Palpitations and chest pain Hx of Present Illness This is a 72-year-old male with past medical history of coronary artery disease status post CABG 2 episodes, aortic stenosis status post aortic valve replacement who presents with symptoms of palpitations for 1 week and chest pain 1 day. Patient with palpitations which occur in the morning time and resolved throughout the day. No symptoms with activity of palpitations, shortness of breath, chest pain or dizziness. Palpitations last from a few seconds to a few minutes. No associated dizziness or lightheadedness. On the day of admission, patient woke up in the morning and had palpitations but this time associated with chest discomfort. Patient cannot describe the type of chest discomfort. It has resolved after a few minutes He otherwise denies exertional chest pain. Because of his cardiac history, who presents emergency room for further evaluation care. He was having palpitations in the emergency room with no further since admission. Denies any chest pain, dizziness or lightheadedness at the current time. 12 point review of systems was performed with all pertinent positives and negatives mentioned above and all else is negative Psychological: no complaints Past Medical History Aortic stenosis status post replacement Medical History: coronary artery disease, hypertension Past Surgical History AVR Past Surgical Hx: coronary bypass surgery Family History Significant Family History: no pertinent family hx Social History Alcohol Use: none Smoking Status: Former smoker Drug Use: none Other Social History Lives at home Exam/Review of Systems Vital Signs Vitals Vital Signs Date Time Temp Pulse Resp B/P Pulse Ox O2 Delivery O2 Flow Rate FiO2 07/29/17 15:19 98.2 53 18 161/79 94 07/28/17 15:15 Room Air Intake and Output 07/28/17 07/28/17 07/29/17 15:00 23:00 07:00 Intake Total 500 ml 300 ml Balance 500 ml 300 ml Exam No apparent distress, daughter at bedside Constitutional: alert, oriented Head: normocephalic Neck: supple Respiratory: other (Coarse breath sounds bilaterally, no wheezing) Cardiovascular: other (S1-S2 heard), regular rate and rhythm Gastrointestinal: bowel sounds, non-tender, soft Extremities: other (No edema) Results Result Diagram: 07/29/17 0546 07/29/17 1045 Results 24 hrs Laboratory Tests Test 07/28/17 16:21 07/28/17 22:08 07/29/17 05:46 07/29/17 10:45 Creatine Kinase 58 51 Creatine Kinase Index 1.2 1.2 Creatinine Kinase MB (Mass) 0.69 0.61 Troponin I < 0.012 < 0.012 White Blood Count 8.9 Red Blood Count 5.04 Hemoglobin 14.5 Hematocrit 43.2 Mean Corpuscular Volume 85.7 Mean Corpuscular Hemoglobin 28.8 L Mean Corpuscular Hemoglobin Concent 33.6 Red Cell Distribution Width 13.7 Platelet Count 170 Mean Platelet Volume 10.0 Neutrophils % 57.6 Lymphocytes % 30.6 Monocytes % 7.4 Eosinophils % 3.4 Basophils % 0.8 Nucleated Red Blood Cells % 0.0 Neutrophils # 5.1 Lymphocytes # 2.7 Monocytes # 0.7 Eosinophils # 0.3 Basophils # 0.1 Nucleated Red Blood Cells # 0.0 Hemoglobin A1c 5.9 Sodium Level 137 Potassium Level 4.4 Chloride Level 104 Carbon Dioxide Level 28 Anion Gap 9 Blood Urea Nitrogen 15 Creatinine 0.92 Glucose Level 92 Calcium Level 9.3 Phosphorus Level 3.4 Magnesium Level 1.8 Total Bilirubin 1.5 H Direct Bilirubin 0.00 Indirect Bilirubin 1.5 H Aspartate Amino Transf (AST/SGOT) 27 Alanine Aminotransferase (ALT/SGPT) 42 Alkaline Phosphatase 74 Total Protein 6.7 Albumin 3.7 Globulin 3.00 Albumin/Globulin Ratio 1.23 Triglycerides Level 151 H Cholesterol Level 129 LDL Cholesterol, Calculated 64 HDL Cholesterol 35 Cholesterol/HDL Ratio 3.6 Thyroid Stimulating Hormone (TSH) 3.610 Free Thyroxine Index 2.28 Thyroxine (T4) 7.2 Triiodothyronine (T3) Uptake 31.6 Medications Medications Current Medications Amlodipine Besylate (Norvasc) 5 mg DAILY PO Last administered on 07/29/17 10: 06; Admin Dose 5 MG; Start 07/29/17 at 09:00 Atorvastatin Calcium (Lipitor) 80 mg HS PO Last administered on 07/28/17 20:33 ; Admin Dose 80 MG; Start 07/28/17 at 21:00 Benazepril HCl (Lotensin) 40 mg DAILY PO Last administered on 07/29/17 10:06; Admin Dose 40 MG; Start 07/29/17 at 09:00 Docusate Sodium (Colace) 100 mg BID PRN PO CONSTIPATION; Start 07/28/17 at 16: 30 Al Hydrox/Mg Hydrox/Simethicone (Mag-Al Plus) 10 ml TID PO Last administered on 07/29/17 12:43; Admin Dose 10 ML; Start 07/28/17 at 21:00 Metoprolol Tartrate (Lopressor) 50 mg BID PO Last administered on 07/29/17 10: 08; Admin Dose 50 MG; Start 07/28/17 at 21:00 Multivitamins Therapeutic (Theragran) 1 tab DAILY PO Last administered on 10:06; Admin Dose 1 TAB; Start 07/29/17 at 09:00 Fish Oil (Fish Oil) 1,000 mg DAILY PO Last administered on 07/29/17 10:05; Admin Dose 1,000 MG; Start 07/29/17 at 09:00 Ondansetron HCl (Zofran Tab) 4 mg Q8H PRN PO NAUSEA AND/OR VOMITING; Start at 16:30 Ondansetron HCl (Zofran Inj) 4 mg Q6H PRN IV NAUSEA AND/OR VOMITING; Start at 16:30 Acetaminophen (Tylenol Tab) 650 mg Q6H PRN PO PAIN LEVEL 1-3 OR FEVER; Start at 16:30 Acetaminophen (Tylenol Supp) 650 mg Q6H PRN [place] PAIN LEVEL 1-3 OR FEVER; Start 07/28/17 at 16:30 Acetaminophen/ Hydrocodone Bitart ([place] (5/325)) 1 tab Q6H PRN PO MODERATE PAIN LEVEL 4-6; Start 07/28/17 at 16:30 Acetaminophen/ Hydrocodone Bitart ([place] (5/325)) 2 tab Q6H PRN PO SEVERE PAIN LEVEL 7-10; Start 07/28/17 at 16:30 Morphine Sulfate (morphine) 2 mg Q4H PRN IV SEVERE PAIN LEVEL 7-10; Start 07/28 at 16:30 Magnesium Hydroxide (Milk Of Mag) 30 ml DAILY PRN PO CONSTIPATION; Start at 16:30 Bisacodyl (Dulcolax Supp) 10 mg DAILY PRN [place] CONSTIPATION; Start 07/28/17 at 16 :30 Pantoprazole (Protonix Iv) 40 mg DAILY@06 IV Last administered on 07/29/17t 05: 56; Admin Dose 40 MG; Start 07/29/17 at 06:00 Aspirin (Aspirin) 81 mg DAILY PO ; Start 07/30/17 at 09:00 Nitroglycerin 1 tab 1 tab Q5M PRN SL CHEST PAIN; Start 07/28/17 at 16:30 Magnesium Sulfate/ Sodium Chloride (Magnesium Sulfate/NS) 106 ml @ 35.333 mls/ hr ONCE ONCE IVPB ; Start 07/29/17 at 15:30; Stop 07/29/17 at 18:29 Procedures Procedures ECG with sinus rhythm at 65 bpm, normal QRS duration, nonspecific ST abnormalities Calin Bryant DO Jul 29, 2017 15:49
--- NOTE | 2017-07-29 17:10 | RADRPT ---
Echocardiogram Report Patient Name: LAUREL COATS Gender: Male Date: 1945 Study Date: 29-Jul-2017 Pony Ride Operator: Elizabeth Marquez [facility] Location: [id number] Ref. Physician: SHAYLA AMADOR Quality: Good Procedures: Transthoracic echocardiogram with complete 2D, M-Mode, and doppler examination. Indications: Chest Pain. 2D/M Mode Doppler Measurement Value Normal Ranges Measurement Value Normal Ranges LVIDd 2D 5.3 3.5 - 5.6 cm AV Mean PG 7.0 mmHg LVIDs 2D 2.7 2.1 - 4.1 cm AV Peak Sammy 1.9 m/sec LVPWd 2D 1.0 0.6 - 1.1 cm AV Peak PG 14.0 mmHg IVSd 2D 1.0 0.6 - 1.1 cm LVOT Mean PG 1.4 mmHg AoR Diam 2D 3.2 2.0 - 3.7 cm LVOT Peak Sammy 0.9 m/sec LA Dimen 2D 3.8 2.3 - 4.0 cm LVOT Peak PG 2.9 mmHg MV E Peak Sammy 1.2 m/sec MV A Peak Sammy 1.2 m/sec MV Decel Time 267 msec TR Peak PG 21.4 mmHg Findings Left Ventricle: Normal left ventricular systolic function. Normal left ventricular cavity size. Normal left ventricular wall thickness. Ejection fraction is visually estimated at 55 %. Tissue Doppler/Mitral Doppler indices are consistent with impaired relaxation (Stage I diastolic dysfunction). Right Ventricle: Normal right ventricular size. Normal right ventricular systolic function. Left Atrium: The left atrium is normal in size. Right Atrium: The right atrium is normal in size. Mitral Valve: Normal appearance of the mitral valve. Mild mitral valve regurgitation. Aortic Valve: Aortic Valve Bio Prosthesis. Aortic valve Max velocity 1.90 m/sec. Max PG 14.50 mmHg. Mean PG 7.38 mmHg. Trace aortic valve regurgitation. Tricuspid Valve: Normal appearance and function of the tricuspid valve with trace physiologic regurgitation. Pulmonic Valve: Normal pulmonic valve appearance. There is trace pulmonic regurgitation. Pericardium: Normal pericardium with no significant pericardial effusion. Aorta: Normal aortic root. IVC: Normal size and normal respiratory collapse consistent with normal right atrial pressure. Conclusions 1.Normal left ventricular systolic function. Normal left ventricular cavity size. Normal left ventricular wall thickness. Ejection fraction is visually estimated at 55 %. Tissue Doppler/Mitral Doppler indices are consistent with impaired relaxation (Stage I diastolic dysfunction). 2.Normal right ventricular size. Normal right ventricular systolic function. 3.The left atrium is normal in size. 4.The right atrium is normal in size. 5.Aortic Valve Bio Prosthesis with normal function. 6.Mild mitral valve regurgitation. 7.Normal appearance and function of the tricuspid valve with trace physiologic regurgitation. 8.Normal pericardium with no significant pericardial effusion. Electronically Signed By: Calin Bryant 29-Jul-2017 17:09:13 -0700 Patient Name: LAUREL COATS Study Date: 29-Jul-2017 [id number]
[2017-07-29] MEDS: ATORVASTATIN 40 MG TAB PO SCH (20:33)
[2017-07-30] VITALS (9 sets, daily range): BP systolic 120–153; BP diastolic 65–86; PULSE 46–60; RESP 17–19
[2017-07-30] MEDS ORDERED: PANTOPRAZOLE (EC) 40 MG TAB PO SCH (06:00)
[2017-07-30] MEDS ORDERED: ASPIRIN 81 MG TAB PO SCH (09:00)
[2017-07-30] MEDS: FISH OIL 1,000 MG CAP PO SCH (09:40)
[2017-07-30] MEDS: AL HYDROX/MG HYDROX/SIMETH 30 ML CUP PO SCH ×2 (09:40→12:51)
[2017-07-30] MEDS: MULTIVITAMINS THERAPEUTIC TAB PO SCH (09:40)
[2017-07-30] MEDS: BENAZEPRIL 40 MG TAB PO SCH (09:41)
[2017-07-30] MEDS: AMLODIPINE 5 MG TAB PO SCH (10:48)
[2017-07-30] MEDS: METOPROLOL 50 MG TAB PO SCH (10:49)
[2017-07-30] MEDS ORDERED: MAGN400T28 PO (11:43)
[2017-07-30 12:46] LABS: BASOPHIL # 0.1 10^3/ul (0.0-0.1); BASOPHILS % 0.7 % (0.0-2.0); EOSINOPHILS # 0.3 10^3/ul (0.0-0.5); HEMATOCRIT 49.7 % (42.0-52.0); HEMOGLOBIN 16.8 g/dl (14.0-18.0); LYMPHOCYTES # 3.2 10^3/ul (0.8-2.9); LYMPHOCYTES % 33.8 % (15.0-51.0); MEAN CORPUSCULAR HEMOGLOBIN 29.1 pg (29.0-33.0); MEAN CORPUSCULAR HGB CONC 33.8 g/dl (32.0-37.0); MEAN PLATELET VOLUME 10.3 fl (7.4-10.4); MONOCYTE # 0.8 10^3/ul (0.3-0.9); MONOCYTES % 8.5 % (0.0-11.0); NEUTROPHIL # 5.1 10^3/ul (1.6-7.5); NEUTROPHILS % 53.8 % (39.0-77.0); PLATELET COUNT 204 10^3/UL (140-415); RED BLOOD COUNT 5.78 10^6/ul (4.70-6.10); RED CELL DISTRIBUTION WIDTH 13.9 % (11.5-14.5); WHITE BLOOD COUNT 9.5 10^3/ul (4.8-10.8)
--- NOTE | 2017-07-30 12:46 | CONS ---
Date/Time of Note Date/Time of Note DATE: 07/30/17 TIME: 12:43 Assessment/Plan Assessment/Plan Additional Assessment/Plan Palpitations and chest pain, resolved CAD with history of CABG Aortic stenosis status post aortic valve replacement [place] ejection fraction Hypertension PVCs -Patient feeling much better today. He denies exertional chest pain or shortness of breath. Serial cardiac enzymes remain negative, ECG with no significant ischemic abnormalities. Telemetry reviewed with episodes of PVCs have decreased.. Would supplement magnesium to maintain above 2.0, maintain potassium above 4.0, continue beta-blockers heart rate and blood pressure permits. Continue aspirin and statin therapy if no contraindication. DC planning Consultation Date/Type/Reason Admit Date/Time Jul 28, 2017 at 13:18 Initial Consult Date Type of Consultation: cv 24 HR Interval Summary Free Text/Dictation Feeling much better, denies chest pain, palpitations, shortness of breath or dizziness at rest or with ambulation Exam/Review of Systems Vital Signs Vitals Vital Signs Date Time Temp Pulse Resp B/P Pulse Ox O2 Delivery O2 Flow Rate FiO2 07/30/17 12:26 60 07/30/17 11:44 97.8 17 153/86 53 07/28/17 15:15 Room Air Intake and Output 07/29/17 07/29/17 07/30/17 15:00 23:00 07:00 Intake Total 1326 ml 120 ml Balance 1326 ml 120 ml Exam No apparent distress Constitutional: alert, oriented Head: normocephalic Respiratory: other (Coarse breath sounds bilaterally, no wheezing) Cardiovascular: other (S1-S2 heard), regular rate and rhythm Gastrointestinal: bowel sounds, non-tender, soft Extremities: edema (Trace) Results Result Diagram: 07/29/17 0546 07/29/17 1045 Results 24 hrs Laboratory Tests Test 07/30/17 12:05 White Blood Count Pending Red Blood Count Pending Hemoglobin Pending Hematocrit Pending Mean Corpuscular Volume Pending Mean Corpuscular Hemoglobin Pending Mean Corpuscular Hemoglobin Concent Pending Red Cell Distribution Width Pending Platelet Count Pending Mean Platelet Volume Pending Medications Medications Current Medications Amlodipine Besylate (Norvasc) 5 mg DAILY PO Last administered on 07/30/17t 10: 48; Admin Dose 5 MG; Start 07/29/17 at 09:00 Atorvastatin Calcium (Lipitor) 80 mg HS PO Last administered on 07/29/17 20:33 ; Admin Dose 80 MG; Start 07/28/17 at 21:00 Benazepril HCl (Lotensin) 40 mg DAILY PO Last administered on 07/30/17 09:41; Admin Dose 40 MG; Start 07/29/17 at 09:00 Docusate Sodium (Colace) 100 mg BID PRN PO CONSTIPATION; Start 07/28/17 at 16: 30 Al Hydrox/Mg Hydrox/Simethicone (Mag-Al Plus) 10 ml TID PO Last administered on 07/30/17 09:40; Admin Dose 10 ML; Start 07/28/17 at 21:00 Metoprolol Tartrate (Lopressor) 50 mg BID PO Last administered on 07/30/17 10: 49; Admin Dose 50 MG; Start 07/28/17 at 21:00 Multivitamins Therapeutic (Theragran) 1 tab DAILY PO Last administered on 09:40; Admin Dose 1 TAB; Start 07/29/17 at 09:00 Fish Oil (Fish Oil) 1,000 mg DAILY PO Last administered on 07/30/17 09:40; Admin Dose 1,000 MG; Start 07/29/17 at 09:00 Ondansetron HCl (Zofran Tab) 4 mg Q8H PRN PO NAUSEA AND/OR VOMITING; Start at 16:30 Ondansetron HCl (Zofran Inj) 4 mg Q6H PRN IV NAUSEA AND/OR VOMITING; Start at 16:30 Acetaminophen (Tylenol Tab) 650 mg Q6H PRN PO PAIN LEVEL 1-3 OR FEVER; Start at 16:30 Acetaminophen (Tylenol Supp) 650 mg Q6H PRN [place] PAIN LEVEL 1-3 OR FEVER; Start 07/28/17 at 16:30 Acetaminophen/ Hydrocodone Bitart ([place] (5/325)) 1 tab Q6H PRN PO MODERATE PAIN LEVEL 4-6 Last administered on 07/29/17 22:54; Admin Dose 1 TAB; Start at 16:30 Acetaminophen/ Hydrocodone Bitart ([place] (5/325)) 2 tab Q6H PRN PO SEVERE PAIN LEVEL 7-10; Start 07/28/17 at 16:30 Morphine Sulfate (morphine) 2 mg Q4H PRN IV SEVERE PAIN LEVEL 7-10; Start 07/28 at 16:30 Magnesium Hydroxide (Milk Of Mag) 30 ml DAILY PRN PO CONSTIPATION; Start at 16:30 Bisacodyl (Dulcolax Supp) 10 mg DAILY PRN [place] CONSTIPATION; Start 07/28/17 at 16 :30 Aspirin (Aspirin) 81 mg DAILY PO Last administered on 07/30/17 09:40; Admin Dose 81 MG; Start 07/30/17 at 09:00 Nitroglycerin (Nitroglycerin (Sl Tab) 0.4 Mg) 1 tab Q5M PRN SL CHEST PAIN; Start 07/28/17 at 16:30 Pantoprazole (Protonix Tab) 40 mg DAILY@06 PO Last administered on 07/30/17 05 :27; Admin Dose 40 MG; Start 07/30/17 at 06:00 Calin Bryant DO Jul 30, 2017 12:45
[2017-07-30 13:16] LABS: ALBUMIN 4.4 g/dl (3.3-4.9); ALBUMIN/GLOBULIN RATIO 1.07; BILIRUBIN,INDIRECT 1.8 mg/dl (0-1.1); BILIRUBIN,TOTAL 1.8 mg/dl (0.2-1.3); CALCIUM 9.5 mg/dl (8.4-10.2); CREATININE 1.08 mg/dl (0.61-1.24); MAGNESIUM 2.3 mg/dl (1.7-2.5); POTASSIUM 3.7 mmol/L (3.5-5.1); TOTAL PROTEIN 8.5 g/dl (6.1-8.1)
[2017-07-30] MEDS ORDERED: POTASSIUM CHLORIDE (SR) 20 MEQ TAB PO STA (16:21)
--- NOTE | 2017-08-05 11:41 | DS ---
Date/Time of Note Date/Time of Note DATE: 08/05/17 TIME: 11:37 Discharge Summary Admission/Discharge Info Admit Date/Time Jul 28, 2017 at 13:18 Discharge Date/Time Jul 30, 2017 at 17:33 Discharge Diagnosis 1. Chest pain 2. History of CAD. 3. Essential hypertension. 4. History of dyslipidemia. Patient Condition: Stable Consults 1. Dr. Calin Bryant Hx of Present Illness This 72-year-old male with history of hypertension, coronary artery disease with CABG 2, dyspnea, who came to clinic with return hospital due to reports of 3 days of intermittent chest pain. Patient does report the chest pain is on the left side of his chest pressure-like in nature and nonradiating 10 out of 10 when he does have pain. He reports no specific exacerbating factors. Denies any shortness of breath or chest pain on exertion. Reports having some palpitations. He subsequently went to [facility] for further evaluation. Initial troponin was negative. CBC and BMP otherwise unremarkable. He remained afebrile. Denies any sick contacts. He does report compliance with his home medications. We will evaluate him for the aformentiond issues. Hospital Course This is a 72-year-old male with history of hypertension, coronary artery disease with CABG 2, who went to [facility] due to reports of intermittent chest pain for 3 days duration. Patient reports chest pain is on the left side of his chest pressure-like in nature and nonradiating 10 out of 10. We did get e commerce strategist consultation considering patient's extensive cardiac history. He did have an echocardiogram done that did show him to have an ejection fraction of roughly 55% residual diastolic dysfunction. We also did trend his serial troponins which were all essentially negative. He was seen with some episodes of PVC which may have been the chest pain the patient is experiencing. He was given magnesium as well as continue on beta-daria from which he did have good response from. During his course of stay he did improve. He did have resolution of his chest pain. He was otherwise optimized medically for his other ailments. He is resumed on antiplatelet therapy for his history of CAD and antihypertensives for his hypertension. He was also resumed on a statin medication. During his course of stay he did improve. The plan of care was discussed with the patient and patient did verbalize understanding. On the day of discharge patient was in stable condition Discussed plan of care with Dr. Jarquin [place] Meds Active Scripts Magnesium Oxide* (Magnesium Oxide*) 400 Mg Tablet, 400 MG PO DAILY for 30 Days, #30 TAB Prov:SHAYLA AMADOR 07/30/17 Ondansetron Hcl* (Zofran*) 4 Mg Tablet, 4 MG PO Q8H Y for NAUSEA AND/OR VOMITING , #15 TAB Prov:CHRIST LAW MD 12/16/16 Mag Hydrox/Al Hydrox/Simeth (Maalox Advanced Suspension) 355 Ml Oral.susp, 2 TSP PO TID for PAIN, #24 OZ Prov:CHRIST LAW MD 12/16/16 Ibuprofen* (Motrin*) 400 Mg Tab, 400 MG PO Q8 for PAIN AND/OR INFLAMMATION, #30 TAB Prov:CHRIST LAW MD 12/16/16 Atorvastatin* (Atorvastatin*) 40 Mg Tablet, 80 MG PO HS for 30 Days, #30 TAB Prov:JOSEF RAMOS MD 06/25/16 Aspirin* (Aspirin* EC) 81 Mg Tablet.dr, 81 MG PO DAILY for 30 Days, #30 Prov:JOSEF RAMOS MD 06/25/16 Reported Medications Amlodipine Besylate* (Norvasc*) 5 Mg Tablet, 5 MG PO DAILY, TAB 1 Benazepril Hcl* (Benazepril Hcl*) 40 Mg Tablet, 40 MG PO DAILY, TAB 15 Multivitamins* (Theragran*) 1 Tab Tab, 1 TAB PO DAILY, TAB 11/05/14 Metoprolol Tartrate* (Lopressor*) 50 Mg Tab, 50 MG PO BID, TAB 115 Tramadol Hcl* (Ultram*) 50 Mg Tablet, 50 MG PO Q8, TAB 11/05/14 Docusate Sodium* (Docusate Sodium*) 100 Mg Capsule, 100 MG PO BID Y for CONSTIPATION, CAP 11/05/14 [place]-3 Fatty Acids/Fish Oil* (Fish Oil *) 1,000 Mg Capsule, 1000 MG PO DAILY, CAP 11/05/14 Follow-up Plan 1. Follow up with Dr. Clement in one week Primary Care Provider Genoveva Arellano Time spent on discharge: > 30 minutes SHAYLA AMADOR Aug 05, 2017 11:41
== END 2017-07-30 17:33 | disposition home or self-care (01) ==
LOC: E/R 10:19 → TEL 13:18
PROVIDERS: ADMIT Internal Medicine; ATTEND Internal Medicine
DX: R07.9 Chest pain, unspecified (principal); I25.10 Atherosclerotic heart disease of native coronary artery without angina pectoris; I10 Essential (primary) hypertension; I35.0 Nonrheumatic aortic (valve) stenosis; I49.3 Ventricular premature depolarization; R06.00 Dyspnea, unspecified; R00.2 Palpitations; Z79.82 Long term (current) use of aspirin; Z86.73 Personal history of transient ischemic attack (TIA), and cerebral infarction without residual deficits; Z95.1 Presence of aortocoronary bypass graft; Z95.2 Presence of prosthetic heart valve
CPT/HCPCS: 36415; 71010; 80053; 80061; 82550; 82553; 83036; 83735; 84100; 84436; 84443; 84479; 84484; 85025; 85610; 85730; 93005; 93306; 96365; 96366; 96375; 99285; C9113; G0378; J3475; 99217

== ENCOUNTER 2017-11-17 09:48 | Inpatient (IN) | END 2017-11-18 16:50 | disposition home or self-care (01) | DRG 916 ==

== ENCOUNTER 2018-08-15 07:51 | Inpatient (IN) | END 2018-08-22 16:34 | disposition home or self-care (01) | DRG 853 ==